=== PATIENT | male | born 1935 | race Caucasian/White ===

== ENCOUNTER 2016-08-12 08:54 | Inpatient (IN) | payer MEDICARE, BC ==
[~2016-08-12 08:54] MED LIST: ADULT LOW DOSE81 M1 PO; ADULT LOW DOSE81 MG PO; ASPIR-LOW81 MG PO; BYSTOLIC20 MG PO; CALCIUM 600 +1 EA10 PO; CALCIUM500 M1 PO; CENTRUM SILVER1 EAC3 PO; CENTRUM SILVER1 TAB PO; CIPRO500 M2 PO; COUMADIN3 MG PO; COUMADIN5 M2 PO; CPAP; CULTURELLE1 EAC1 PO; DELTASONE5 MG PO; EQL FISH OIL 1,1 CA1 PO; FLEXERIL10 MG PO; ICAPS TABLET1 EACH PO; ICAPS TABLET1 TAB.S PO; IMODIUM A-D2 M3 PO; K-DUR10 ME1 PO; KLOR-CON 1010 MEQ PO; LASIX20 MG PO; LASIX40 M1 PO; LEVAQUIN500 MG PO; LEXAPRO10 MG PO; LISINOPRIL10 MG PO; LORTAB 7.5/5001 EA PO; LOSARTAN POTASS50 M1 PO; LOVAZA1 GM PO; LOVENOX30 MG/0.1 SC; METOPROLOL SUCC50 M1 PO; MILK OF MAGNESIA PO; NORCO 7.5/325 T1 TAB PO; OMEPRAZOLE20 MG PO; POTASSIUM CHLO20 ME3 PO; PREDNISONE1 M1 PO; PREDNISONE1 MG PO; PREDNISONE5 MG PO; SYSTANE 0.3-0.4%5 ML EACH EYE; TEKTURNA HCT 151 TA1 PO; TOPROL XL25 MG PO; TRAMADOL HCL50 M2 PO; TYLENOL325 M2 PO; TYLENOL500 MG PO; VANCOCIN HCL125 MG PO; VITAMIN D PO; VITAMIN D31000 UNI3 PO; VITAMIN D31000 UNI4 PO
[2016-08-12] MEDS ORDERED: NORVASC5 M2 PO (08:57)
[2016-08-12] MEDS ORDERED: TOPROL XL50 M1 PO (08:58)
[2016-08-12] MEDS ORDERED: CLEOCIN HCL150 M1 PO (08:59)
[2016-08-12 09:29] LABS: BASO % 0.1 % (0-2); EOS % 0.1 % (0-7); HCT-HEMATOCRIT 43.2 % (36.0-53.5); HGB-HEMOGLOBIN 14.7 gm/dl (13.5-17.0); IMMATURE GRANULOCYTES ABSOLUTE 0.16 tho/cmm (0-0.03); IMMATURE GRANULOCYTES PERCENT 0.8 % (0-0.3); LYMPH % 5.4 % (20-45); LYMPH ABSOLUTE COUNT 1.2 tho/cmm (0.8-4.5); MCH (MEAN CORPUSCULAR HGB) 32.1 pg (28.0-32.0); MCV (MEAN CELL VOLUME) 94.3 fl (82.0-96.0); MEAN PLATELET VOLUME 10.6 cmc (9.4-12.4); MONO % 6.7 % (0-12); MONOCYTE ABSOLUTE COUNT 1.4 tho/cmm (0.0-1.2); NEUTROPHIL ABSOLUTE COUNT 18.5 tho/cmm (1.6-8.0); NEUTROPHIL-AUTOMATED 18.5 tho/cmm (1.6-8.0); NEUTROPHILS % 86.9 % (40-80); PLATELET COUNT 257 tho/cmm (150-450); RED BLOOD COUNT 4.58 mil/cmm (4.40-5.70); RED CELL DISTRIBUTION WIDTH 13.8 % (12.4-16.4); WHITE BLOOD COUNT 21.3 tho/cmm (4.0-10.0)
[2016-08-12 09:33] LABS: PROTHROMBIN TIME 23.5 SECONDS (9.0-13.6)
[2016-08-12 09:47] LABS: ALBUMIN 3.7 g/dl (3.5-5.0); ALKALINE PHOSPHATASE 39 U/L (33-138); ALT/SGPT 20 U/L (12-78); ANION GAP 16 mmol/L (0-20); AST/SGOT 22 U/L (10-40); BILIRUBIN,TOTAL 0.6 mg/dl (0.0-1.5); BLOOD UREA NITROGEN 27 mg/dl (6-24); CARBON DIOXIDE-VENOUS 23 mmol/L (22-32); CHLORIDE 107 mmol/l (96-110); CREATININE 1.73 mg/dl (0.60-1.30); GLUCOSE 144 mg/dL (70-110); POTASSIUM 3.9 mmol/L (3.7-5.1); SODIUM 142 mmol/L (135-145); eGFR VALUE FOR BLACK 42 mL/Min
[2016-08-12 09:56] LABS: PROCALCITONIN 4.69 ng/ml (0.05-0.09)
[2016-08-12 10:32] LABS: ABG CO2 ARTERIAL 23 mmol/L (21-27); ARTERIAL BLD GAS O2 SATURATION 93 % (95-98); ARTERIAL BLOOD GAS PCO2 34 mmHg (32-45); ARTERIAL PO2 67 mmHg (70-100); BICARBONATE 22 mmol/L (21-28); BLOOD GAS BASE EXCESS -1 mM/L (-/+3); PH 7.43 Units (7.35-7.45)
[2016-08-12] MEDS ORDERED: CULTURELLE1 EAC2 PO (15:24)
[2016-08-13 01:26] LABS: URINE LEUKOCYTE ESTERASE NEGATIVE (NEG); URINE PROTEIN MODERATE (NEG); URINE SPECIFIC GRAVITY 1.025 (1.003-1.030)
[2016-08-13 01:39] LABS: URINE PRT/CR RATIO 0.4 Ratio (0.0-0.20); URINE TOTAL PROTEIN-RANDOM 54.7 mg/dl (<11.8)
[2016-08-13 01:54] LABS: URINE APPEARANCE HAZY; URINE BILIRUBIN NEGATIVE (NEG); URINE BLOOD SMALL (NEG); URINE COLOR YELLOW; URINE GLUCOSE (UA) MODERATE (NEG); URINE KETONE NEGATIVE (NEG); URINE NITRITE NEGATIVE (NEG)
[2016-08-13 02:21] LABS: URINE WBC 0 /[HPF] (0-5)
[2016-08-13 02:22] LABS: URINE EPITHELIAL CELLS 0 /[HPF] (0-10)
[2016-08-13 04:18] LABS: HCT-HEMATOCRIT 31.1 % (36.0-53.5); HGB-HEMOGLOBIN 10.4 gm/dl (13.5-17.0); IMMATURE GRANULOCYTES ABSOLUTE 0.04 tho/cmm (0-0.03); IMMATURE GRANULOCYTES PERCENT 0.3 % (0-0.3); LYMPH % 4.6 % (20-45); LYMPH ABSOLUTE COUNT 0.7 tho/cmm (0.8-4.5); MCH (MEAN CORPUSCULAR HGB) 31.7 pg (28.0-32.0); MCHC MEAN CORPUSCULAR HGB CONC 33.4 % (32.0-36.0); MCV (MEAN CELL VOLUME) 94.8 fl (82.0-96.0); MEAN PLATELET VOLUME 10.1 cmc (9.4-12.4); MONO % 1.4 % (0-12); MONOCYTE ABSOLUTE COUNT 0.2 tho/cmm (0.0-1.2); NEUTROPHIL ABSOLUTE COUNT 14.6 tho/cmm (1.6-8.0); NEUTROPHIL-AUTOMATED 14.6 tho/cmm (1.6-8.0); NEUTROPHILS % 93.7 % (40-80); PLATELET COUNT 179 tho/cmm (150-450); RED BLOOD COUNT 3.28 mil/cmm (4.40-5.70); RED CELL DISTRIBUTION WIDTH 14.2 % (12.4-16.4); WHITE BLOOD COUNT 15.5 tho/cmm (4.0-10.0)
[2016-08-13 04:39] LABS: ANION GAP 14 mmol/L (0-20); BLOOD UREA NITROGEN 19 mg/dl (6-24); C-REACTIVE PROTEIN 15.1 mg/dl (0-0.9); CALCIUM 7.2 mg/dl (8.5-10.5); CARBON DIOXIDE-VENOUS 21 mmol/L (22-32); CHLORIDE 114 mmol/l (96-110); CREATININE 0.98 mg/dl (0.60-1.30); GLUCOSE 132 mg/dL (70-110); POTASSIUM 3.5 mmol/L (3.7-5.1); SODIUM 145 mmol/L (135-145); eGFR VALUE FOR BLACK 83 mL/Min
[2016-08-13 04:48] LABS: INR 3.2 INR (0.9-1.1); PROTHROMBIN TIME 38.5 SECONDS (9.0-13.6)
[2016-08-14 05:16] LABS: ABG CO2 ARTERIAL 19 mmol/L (21-27); ARTERIAL BLD GAS O2 SATURATION 86 % (95-98); ARTERIAL BLOOD GAS PCO2 30 mmHg (32-45); BICARBONATE 18 mmol/L (21-28); BLOOD GAS BASE EXCESS -5 mM/L (-/+3)
[2016-08-14 05:18] LABS: ARTERIAL PO2 50 mmHg (70-100)
[2016-08-14 05:26] LABS: INR 4.5 INR (0.9-1.1); PROTHROMBIN TIME 54.7 SECONDS (9.0-13.6)
[2016-08-14 06:27] LABS: ABG CO2 ARTERIAL 20 mmol/L (21-27); ARTERIAL BLOOD GAS PCO2 29 mmHg (32-45); BICARBONATE 19 mmol/L (21-28); BLOOD GAS BASE EXCESS -4 mM/L (-/+3); PH 7.43 Units (7.35-7.45)
[2016-08-14 06:28] LABS: ARTERIAL BLD GAS O2 SATURATION 96 % (95-98); ARTERIAL PO2 76 mmHg (70-100)
[2016-08-14 12:21] LABS: BLOOD UREA NITROGEN 18 mg/dl (6-24); CALCIUM 6.6 mg/dl (8.5-10.5); CARBON DIOXIDE-VENOUS 18 mmol/L (22-32); CHLORIDE 111 mmol/l (96-110); CREATININE 0.84 mg/dl (0.60-1.30); SODIUM 140 mmol/L (135-145); eGFR VALUE FOR BLACK >90 mL/Min
[2016-08-14 12:22] LABS: ANION GAP 14 mmol/L (0-20); GLUCOSE 233 mg/dL (70-110)
[2016-08-14 12:28] LABS: POTASSIUM 2.9 mmol/L (3.7-5.1)
[2016-08-14 19:16] LABS: ABG CO2 ARTERIAL 20 mmol/L (21-27); ARTERIAL BLD GAS O2 SATURATION 93 % (95-98); ARTERIAL BLOOD GAS PCO2 27 mmHg (32-45); ARTERIAL PO2 62 mmHg (70-100); BICARBONATE 19 mmol/L (21-28); BLOOD GAS BASE EXCESS -4 mM/L (-/+3); PH 7.46 Units (7.35-7.45)
[2016-08-15 05:52] LABS: BASO % 0.1 % (0-2); HCT-HEMATOCRIT 32.9 % (36.0-53.5); HGB-HEMOGLOBIN 11.2 gm/dl (13.5-17.0); IMMATURE GRANULOCYTES ABSOLUTE 0.12 tho/cmm (0-0.03); IMMATURE GRANULOCYTES PERCENT 0.7 % (0-0.3); LYMPH % 4.9 % (20-45); LYMPH ABSOLUTE COUNT 0.9 tho/cmm (0.8-4.5); MCH (MEAN CORPUSCULAR HGB) 31.5 pg (28.0-32.0); MCV (MEAN CELL VOLUME) 92.7 fl (82.0-96.0); MEAN PLATELET VOLUME 10.7 cmc (9.4-12.4); MONO % 5.5 % (0-12); NEUTROPHIL ABSOLUTE COUNT 15.9 tho/cmm (1.6-8.0); NEUTROPHIL-AUTOMATED 15.9 tho/cmm (1.6-8.0); NEUTROPHILS % 88.8 % (40-80); PLATELET COUNT 224 tho/cmm (150-450); RED BLOOD COUNT 3.55 mil/cmm (4.40-5.70); RED CELL DISTRIBUTION WIDTH 14.3 % (12.4-16.4); WHITE BLOOD COUNT 17.8 tho/cmm (4.0-10.0)
[2016-08-15 06:08] LABS: ALBUMIN 2.6 g/dl (3.5-5.0); ANION GAP 12 mmol/L (0-20); BLOOD UREA NITROGEN 21 mg/dl (6-24); CALCIUM 7.9 mg/dl (8.5-10.5); CARBON DIOXIDE-VENOUS 23 mmol/L (22-32); CHLORIDE 113 mmol/l (96-110); CREATININE 0.93 mg/dl (0.60-1.30); GLUCOSE 159 mg/dL (70-110); PHOSPHOROUS 1.6 mg/dl (2.5-4.9); POTASSIUM 3.9 mmol/L (3.7-5.1); SODIUM 144 mmol/L (135-145); eGFR VALUE FOR BLACK 88 mL/Min
[2016-08-15 09:14] LABS: INR 4.7 INR (0.9-1.1); PROTHROMBIN TIME 57.1 SECONDS (9.0-13.6)
[2016-08-16 03:54] LABS: BASO % 0.1 % (0-2); HGB-HEMOGLOBIN 10.6 gm/dl (13.5-17.0); IMMATURE GRANULOCYTES ABSOLUTE 0.19 tho/cmm (0-0.03); IMMATURE GRANULOCYTES PERCENT 1.3 % (0-0.3); LYMPH % 5.1 % (20-45); LYMPH ABSOLUTE COUNT 0.8 tho/cmm (0.8-4.5); MCH (MEAN CORPUSCULAR HGB) 31.6 pg (28.0-32.0); MCHC MEAN CORPUSCULAR HGB CONC 34.2 % (32.0-36.0); MCV (MEAN CELL VOLUME) 92.5 fl (82.0-96.0); MEAN PLATELET VOLUME 10.7 cmc (9.4-12.4); MONO % 6.5 % (0-12); NEUTROPHIL ABSOLUTE COUNT 13.2 tho/cmm (1.6-8.0); NEUTROPHIL-AUTOMATED 13.2 tho/cmm (1.6-8.0); PLATELET COUNT 222 tho/cmm (150-450); RED BLOOD COUNT 3.35 mil/cmm (4.40-5.70); RED CELL DISTRIBUTION WIDTH 14.6 % (12.4-16.4); WHITE BLOOD COUNT 15.2 tho/cmm (4.0-10.0)
[2016-08-16 03:59] LABS: INR 4.5 INR (0.9-1.1); PROTHROMBIN TIME 55.3 SECONDS (9.0-13.6)
[2016-08-16 04:09] LABS: ANION GAP 15 mmol/L (0-20); BLOOD UREA NITROGEN 23 mg/dl (6-24); CALCIUM 7.8 mg/dl (8.5-10.5); CARBON DIOXIDE-VENOUS 23 mmol/L (22-32); CHLORIDE 112 mmol/l (96-110); CREATININE 0.92 mg/dl (0.60-1.30); GLUCOSE 166 mg/dL (70-110); MAGNESIUM 2.1 mg/dl (1.8-2.6); PHOSPHOROUS 1.9 mg/dl (2.5-4.9); POTASSIUM 3.9 mmol/L (3.7-5.1); SODIUM 146 mmol/L (135-145); eGFR VALUE FOR BLACK 89 mL/Min
[2016-08-16 05:11] LABS: PROCALCITONIN 1.37 ng/ml (0.05-0.09)
[2016-08-17 06:00] LABS: HCT-HEMATOCRIT 33.2 % (36.0-53.5); HGB-HEMOGLOBIN 11.4 gm/dl (13.5-17.0); MCH (MEAN CORPUSCULAR HGB) 31.5 pg (28.0-32.0); MCHC MEAN CORPUSCULAR HGB CONC 34.3 % (32.0-36.0); MCV (MEAN CELL VOLUME) 91.7 fl (82.0-96.0); MEAN PLATELET VOLUME 10.6 cmc (9.4-12.4); NEUTROPHIL-AUTOMATED 14.6 tho/cmm (1.6-8.0); PLATELET COUNT 257 tho/cmm (150-450); RED BLOOD COUNT 3.62 mil/cmm (4.40-5.70); RED CELL DISTRIBUTION WIDTH 14.4 % (12.4-16.4); WHITE BLOOD COUNT 17.7 tho/cmm (4.0-10.0)
[2016-08-17 06:05] LABS: ANION GAP 15 mmol/L (0-20); BASO % 0.2 % (0-2); BLOOD UREA NITROGEN 22 mg/dl (6-24); CALCIUM 7.8 mg/dl (8.5-10.5); CARBON DIOXIDE-VENOUS 24 mmol/L (22-32); CHLORIDE 109 mmol/l (96-110); CREATININE 0.82 mg/dl (0.60-1.30); GLUCOSE 183 mg/dL (70-110); IMMATURE GRANULOCYTES ABSOLUTE 0.94 tho/cmm (0-0.03); IMMATURE GRANULOCYTES PERCENT 5.3 % (0-0.3); INR 3.3 INR (0.9-1.1); LYMPH % 6.4 % (20-45); LYMPH ABSOLUTE COUNT 1.1 tho/cmm (0.8-4.5); MAGNESIUM 2.2 mg/dl (1.8-2.6); MONO % 5.5 % (0-12); NEUTROPHIL ABSOLUTE COUNT 14.6 tho/cmm (1.6-8.0); NEUTROPHILS % 82.6 % (40-80); PHOSPHOROUS 2.2 mg/dl (2.5-4.9); POTASSIUM 3.8 mmol/L (3.7-5.1); PROTHROMBIN TIME 39.6 SECONDS (9.0-13.6); SODIUM 144 mmol/L (135-145); eGFR VALUE FOR BLACK >90 mL/Min
[2016-08-18 02:01] LABS: HCT-HEMATOCRIT 31.4 % (36.0-53.5); HGB-HEMOGLOBIN 10.8 gm/dl (13.5-17.0); MCH (MEAN CORPUSCULAR HGB) 31.5 pg (28.0-32.0); MCHC MEAN CORPUSCULAR HGB CONC 34.4 % (32.0-36.0); MCV (MEAN CELL VOLUME) 91.5 fl (82.0-96.0); MEAN PLATELET VOLUME 10.4 cmc (9.4-12.4); NEUTROPHIL-AUTOMATED 14.4 tho/cmm (1.6-8.0); PLATELET COUNT 246 tho/cmm (150-450); RED BLOOD COUNT 3.43 mil/cmm (4.40-5.70); RED CELL DISTRIBUTION WIDTH 14.5 % (12.4-16.4); WHITE BLOOD COUNT 17.8 tho/cmm (4.0-10.0)
[2016-08-18 02:02] LABS: IMMATURE GRANULOCYTES PERCENT 5.4 % (0-0.3)
[2016-08-18 02:03] LABS: BASO % 0.1 % (0-2); IMMATURE GRANULOCYTES ABSOLUTE 0.96 tho/cmm (0-0.03); LYMPH % 5.8 % (20-45); MONO % 7.3 % (0-12); MONOCYTE ABSOLUTE COUNT 1.3 tho/cmm (0.0-1.2); NEUTROPHIL ABSOLUTE COUNT 14.4 tho/cmm (1.6-8.0); NEUTROPHILS % 81.4 % (40-80)
[2016-08-18 02:06] LABS: INR 2.6 INR (0.9-1.1)
[2016-08-18 02:13] LABS: ANION GAP 14 mmol/L (0-20); BLOOD UREA NITROGEN 25 mg/dl (6-24); CALCIUM 7.6 mg/dl (8.5-10.5); CARBON DIOXIDE-VENOUS 26 mmol/L (22-32); CHLORIDE 108 mmol/l (96-110); CREATININE 0.79 mg/dl (0.60-1.30); GLUCOSE 163 mg/dL (70-110); PHOSPHOROUS 2.8 mg/dl (2.5-4.9); POTASSIUM 3.9 mmol/L (3.7-5.1); SODIUM 144 mmol/L (135-145); eGFR VALUE FOR BLACK >90 mL/Min
[2016-08-18 02:25] LABS: PROTHROMBIN TIME 31.4 SECONDS (9.0-13.6)
[2016-08-18] MEDS ORDERED: ZESTRIL2.5 M3 PO (15:35)
[2016-08-18] MEDS ORDERED: GLUCOTROL5 M1 PO (15:36)
[2016-08-18] MEDS ORDERED: PREDNISONE10 M1 PO (15:38)
[2016-08-18] MEDS ORDERED: LEVAQUIN750 M1 PO (15:41)
[2016-08-18] MEDS ORDERED: COMBIVENT RESPIM4 G1 AERO NEB (15:44)
[2016-11-20] MEDS ORDERED: PRILOSEC OTC20 M1 PO (20:11)
[2016-11-20] MEDS ORDERED: CELEXA10 M1 PO (20:12)
[2016-11-20] MEDS ORDERED: METOLAZONE2.5 M1 PO (20:12)
[2016-11-22] MEDS ORDERED: POTASSIUM CHLO20 ME3 PO (16:48)
[2016-11-24] MEDS ORDERED: LEVAQUIN750 M1 PO (10:01)
== END 2016-08-18 15:53 | DRG 871 ==
LOC: EDMED 08:54 → EMR2 11:56 → CCU 14:50 → PCUB 08-13 18:10
PROVIDERS: Emergency Medicine; Internal Medicine; Internal Medicine Critical Care Medicine; Nurse Practitioner; ADMIT Family Medicine
PROC: 02HV33Z Insertion of Infusion Device into Superior Vena Cava, Percutaneous Approach (ICD-10-PCS; principal; 2016-08-12)
PROC: 5A09357 Assistance with Respiratory Ventilation, Less than 24 Consecutive Hours, Continuous Positive Airway Pressure (ICD-10-PCS; 2016-08-12)
DX: A41.9 Sepsis, unspecified organism (principal); J96.01 Acute respiratory failure with hypoxia; R65.21 Severe sepsis with septic shock; I50.31 Acute diastolic (congestive) heart failure; G93.40 Encephalopathy, unspecified; J18.9 Pneumonia, unspecified organism; N17.9 Acute kidney failure, unspecified; I13.0 Hypertensive heart and chronic kidney disease with heart failure and stage 1 through stage 4 chronic kidney disease, or unspecified chronic kidney disease; E11.22 Type 2 diabetes mellitus with diabetic chronic kidney disease; E11.65 Type 2 diabetes mellitus with hyperglycemia; Z79.01 Long term (current) use of anticoagulants; E78.5 Hyperlipidemia, unspecified; Z86.73 Personal history of transient ischemic attack (TIA), and cerebral infarction without residual deficits; I34.0 Nonrheumatic mitral (valve) insufficiency; Z85.46 Personal history of malignant neoplasm of prostate; I48.91 Unspecified atrial fibrillation; Z79.52 Long term (current) use of systemic steroids; Z88.0 Allergy status to penicillin; G47.33 Obstructive sleep apnea (adult) (pediatric); M35.3 Polymyalgia rheumatica; N18.9 Chronic kidney disease, unspecified; D64.9 Anemia, unspecified; E83.39 Other disorders of phosphorus metabolism; E87.5 Hyperkalemia
CPT/HCPCS: C1751; J0456; J0696; J1815; J1940; J1956; J2405; J2930; J3370; J3480; J7030; J7040; J7050

== ENCOUNTER 2016-09-05 15:55 | Inpatient (IN) | payer MEDICARE, BC ==
[~2016-09-05 15:55] MED LIST changes: +CLEOCIN HCL150 M1 PO; +COMBIVENT RESPIM4 G1 AERO NEB; +CULTURELLE1 EAC2 PO; +GLUCOTROL5 M1 PO; +LEVAQUIN750 M1 PO; +NORVASC5 M2 PO; +PREDNISONE10 M1 PO; +TOPROL XL50 M1 PO; +ZESTRIL2.5 M3 PO
[2016-09-05] MEDS ORDERED: COUMADIN4 M1 PO (16:13)
[2016-09-05] MEDS ORDERED: PREDNISONE10 M1 PO (16:14)
[2016-09-05] MEDS ORDERED: LASIX20 M1 PO (16:14)
[2016-09-05 16:59] LABS: BASO % 0.4 % (0-2); EOS % 6.9 % (0-7); EOSINOPHIL ABSOLUTE COUNT 0.5 tho/cmm (0.0-0.7); HCT-HEMATOCRIT 33.6 % (36.0-53.5); HGB-HEMOGLOBIN 11.2 gm/dl (13.5-17.0); IMMATURE GRANULOCYTES ABSOLUTE 0.04 tho/cmm (0-0.03); IMMATURE GRANULOCYTES PERCENT 0.6 % (0-0.3); LYMPH % 18.3 % (20-45); LYMPH ABSOLUTE COUNT 1.3 tho/cmm (0.8-4.5); MCH (MEAN CORPUSCULAR HGB) 31.9 pg (28.0-32.0); MCHC MEAN CORPUSCULAR HGB CONC 33.3 % (32.0-36.0); MCV (MEAN CELL VOLUME) 95.7 fl (82.0-96.0); MEAN PLATELET VOLUME 10.1 cmc (9.4-12.4); MONO % 10.9 % (0-12); MONOCYTE ABSOLUTE COUNT 0.8 tho/cmm (0.0-1.2); NEUTROPHIL ABSOLUTE COUNT 4.6 tho/cmm (1.6-8.0); NEUTROPHIL-AUTOMATED 4.6 tho/cmm (1.6-8.0); NEUTROPHILS % 62.9 % (40-80); PLATELET COUNT 208 tho/cmm (150-450); RED BLOOD COUNT 3.51 mil/cmm (4.40-5.70); RED CELL DISTRIBUTION WIDTH 15.4 % (12.4-16.4); WHITE BLOOD COUNT 7.2 tho/cmm (4.0-10.0)
[2016-09-05 17:14] LABS: ALB/GLOB RATIO 0.8 (0.8-2.0); ALBUMIN 2.8 g/dl (3.5-5.0); ALKALINE PHOSPHATASE 36 U/L (33-138); ALT/SGPT 25 U/L (12-78); ANION GAP 14 mmol/L (0-20); AST/SGOT 15 U/L (10-40); BILIRUBIN,TOTAL 0.4 mg/dl (0.0-1.5); BLOOD UREA NITROGEN 14 mg/dl (6-24); CALCIUM 8.5 mg/dl (8.5-10.5); CARBON DIOXIDE-VENOUS 26 mmol/L (22-32); CHLORIDE 103 mmol/l (96-110); CREATININE 1.09 mg/dl (0.60-1.30); GLUCOSE 128 mg/dL (70-110); LIPASE 100 U/L (73-393); POTASSIUM 4.8 mmol/L (3.7-5.1); SODIUM 138 mmol/L (135-145); eGFR VALUE FOR BLACK 73 mL/Min
[2016-09-05 17:28] LABS: PROCALCITONIN 0.34 ng/ml (0.05-0.09)
[2016-09-05 21:46] LABS: INR 1.6 INR (0.9-1.1); PROTHROMBIN TIME 18.9 SECONDS (9.0-13.6)
[2016-09-06 06:10] LABS: INR 1.7 INR (0.9-1.1); PROTHROMBIN TIME 20.1 SECONDS (9.0-13.6)
[2016-09-06 06:18] LABS: ANION GAP 12 mmol/L (0-20); BLOOD UREA NITROGEN 13 mg/dl (6-24); CALCIUM 7.9 mg/dl (8.5-10.5); CARBON DIOXIDE-VENOUS 23 mmol/L (22-32); CHLORIDE 111 mmol/l (96-110); CREATININE 0.82 mg/dl (0.60-1.30); GLUCOSE 95 mg/dL (70-110); POTASSIUM 4.1 mmol/L (3.7-5.1); SODIUM 142 mmol/L (135-145); eGFR VALUE FOR BLACK >90 mL/Min
[2016-09-06 06:33] LABS: BASO % 0.4 % (0-2); EOSINOPHIL ABSOLUTE COUNT 0.8 tho/cmm (0.0-0.7); HCT-HEMATOCRIT 29.9 % (36.0-53.5); IMMATURE GRANULOCYTES ABSOLUTE 0.04 tho/cmm (0-0.03); IMMATURE GRANULOCYTES PERCENT 0.6 % (0-0.3); LYMPH % 18.1 % (20-45); LYMPH ABSOLUTE COUNT 1.3 tho/cmm (0.8-4.5); MCH (MEAN CORPUSCULAR HGB) 31.6 pg (28.0-32.0); MCHC MEAN CORPUSCULAR HGB CONC 33.4 % (32.0-36.0); MCV (MEAN CELL VOLUME) 94.6 fl (82.0-96.0); MEAN PLATELET VOLUME 10.5 cmc (9.4-12.4); MONO % 13.8 % (0-12); NEUTROPHIL ABSOLUTE COUNT 3.9 tho/cmm (1.6-8.0); NEUTROPHIL-AUTOMATED 3.9 tho/cmm (1.6-8.0); NEUTROPHILS % 56.1 % (40-80); PLATELET COUNT 190 tho/cmm (150-450); RED BLOOD COUNT 3.16 mil/cmm (4.40-5.70); RED CELL DISTRIBUTION WIDTH 15.3 % (12.4-16.4)
--- NOTE | 2016-09-06 12:48 | NUR ---
VIRTUAL CARE NOTE: PT RESTING ON BED AT BEDISE. PT STATES DOING OK. DENIES BREATHING PROLEMS, STILL COUGHING YET. PT DENIES ANY NEEDS OR CONCERNS AT THIS TIME.
[2016-09-07 06:21] LABS: INR 1.9 INR (0.9-1.1)
--- NOTE | 2016-09-07 19:49 | NUR ---
VIRTUAL CARE NOTE: ASSESSMENT DEFERRED. PT. SLEEPING.
[2016-09-08 05:22] LABS: BASO % 0.7 % (0-2); BASO ABSOLUTE COUNT 0.1 tho/cmm (0.0-0.2); EOS % 11.7 % (0-7); EOSINOPHIL ABSOLUTE COUNT 0.8 tho/cmm (0.0-0.7); HGB-HEMOGLOBIN 10.8 gm/dl (13.5-17.0); IMMATURE GRANULOCYTES ABSOLUTE 0.07 tho/cmm (0-0.03); INR 1.8 INR (0.9-1.1); LYMPH % 28.5 % (20-45); MCH (MEAN CORPUSCULAR HGB) 31.7 pg (28.0-32.0); MCHC MEAN CORPUSCULAR HGB CONC 33.8 % (32.0-36.0); MCV (MEAN CELL VOLUME) 93.8 fl (82.0-96.0); MEAN PLATELET VOLUME 10.1 cmc (9.4-12.4); MONOCYTE ABSOLUTE COUNT 0.8 tho/cmm (0.0-1.2); NEUTROPHIL ABSOLUTE COUNT 3.2 tho/cmm (1.6-8.0); NEUTROPHIL-AUTOMATED 3.2 tho/cmm (1.6-8.0); NEUTROPHILS % 46.1 % (40-80); PLATELET COUNT 246 tho/cmm (150-450); PROTHROMBIN TIME 21.6 SECONDS (9.0-13.6); RED BLOOD COUNT 3.41 mil/cmm (4.40-5.70); WHITE BLOOD COUNT 6.9 tho/cmm (4.0-10.0)
[2016-09-08 05:33] LABS: ANION GAP 12 mmol/L (0-20); BLOOD UREA NITROGEN 15 mg/dl (6-24); CALCIUM 8.3 mg/dl (8.5-10.5); CARBON DIOXIDE-VENOUS 25 mmol/L (22-32); CHLORIDE 107 mmol/l (96-110); CREATININE 0.97 mg/dl (0.60-1.30); GLUCOSE 99 mg/dL (70-110); POTASSIUM 3.8 mmol/L (3.7-5.1); SODIUM 140 mmol/L (135-145); eGFR VALUE FOR BLACK 84 mL/Min
[2016-09-08] MEDS ORDERED: LEVAQUIN750 M1 PO (08:10)
[2016-09-08] MEDS ORDERED: TYLENOL325 M2 PO (08:18)
--- NOTE | 2016-09-08 08:43 | NUR ---
[facility] DISCHARGE TEACHING-DID DISMISSAL TEACHING AND MEDICATION REVIEW OF LAST DOSAGES SOME WERE HELD THIS MORNING DUE TO HIS BLOOD PRESSURE BEING LOWER.EDUCATED ON NEW PRESCRIPTION AND THAT PATIENT WILL NEED TO CALL IN FOR PCP APPT AND LAB HE IS LEAVING BEFORE OFFICE IS OPEN. PATIENT ABLE TO DO TEACHBACK AND HIS SCRIPT WAS CALLED IN TO [facility]. NO FURTHER QUESTIONS OR CONCERNS.
[2016-11-20] MEDS ORDERED: PRILOSEC OTC20 M1 PO (20:11)
[2016-11-20] MEDS ORDERED: CELEXA10 M1 PO (20:12)
[2016-11-20] MEDS ORDERED: METOLAZONE2.5 M1 PO (20:12)
[2016-11-22] MEDS ORDERED: POTASSIUM CHLO20 ME3 PO (16:48)
[2016-11-24] MEDS ORDERED: LEVAQUIN750 M1 PO (10:01)
== END 2016-09-08 09:45 | DRG 193 ==
LOC: EDMED 15:55 → EMR2 18:21 → 5WD 20:05
PROVIDERS: Emergency Medicine; Internal Medicine; ADMIT Internal Medicine
PROC: 5A09357 Assistance with Respiratory Ventilation, Less than 24 Consecutive Hours, Continuous Positive Airway Pressure (ICD-10-PCS; principal; 2016-09-06)
DX: J18.9 Pneumonia, unspecified organism (principal); J96.01 Acute respiratory failure with hypoxia; R53.1 Weakness; I48.91 Unspecified atrial fibrillation; I10 Essential (primary) hypertension; Z86.73 Personal history of transient ischemic attack (TIA), and cerebral infarction without residual deficits; E78.5 Hyperlipidemia, unspecified; I34.0 Nonrheumatic mitral (valve) insufficiency; Z85.46 Personal history of malignant neoplasm of prostate; Z88.1 Allergy status to other antibiotic agents; Z88.0 Allergy status to penicillin; Z88.8 Allergy status to other drugs, medicaments and biological substances; Z79.01 Long term (current) use of anticoagulants; K21.9 Gastro-esophageal reflux disease without esophagitis
CPT/HCPCS: J0692; J1956; J7030; J7512